=== PATIENT | female | born 1985 | race American Indian/Alaskan Native ===

== ENCOUNTER 2017-04-16 03:32 | Emergency (ER) | payer SELFPAY ==
[2017-04-16] MEDS ORDERED: PEPCID ONE (03:43)
[2017-04-16] MEDS ORDERED: BENADRYL PO ONE ×2 (03:43→03:48)
[2017-04-16] MEDS ORDERED: PEPCID PO ONE (03:49)
[2017-04-16 03:54] VITALS: BP 112/57
--- NOTE | 2017-04-16 05:10 | Emergency Department Report ---
ED Rash HPI - HPI Chief Complaint: Skin Rash Stated Complaint: RASH Time Seen by Provider: 04/16/17 05:06 Duration: 4 Days Location: Head, Neck, Chest, Back, Abdomen, Upper Extremities, Lower Extremities , Other Suspected Cause: Unknown Rash Symptoms: Yes Itching, No Facial Swelling, No Tongue/Oral Swelling, No Breathing Difficulties, No Choking Sensation, No Wheezing/Dyspnea, No Peeling, No Blistering, No Fever, No Lightheaded, No Malaise, No Myalgias Severity: moderate Other History: 32-year-old -Greek female comes in for complaint of bumps and rash since Tuesday. Patient reports that she slipped in a different bed Tuesday night and woke up with a few bumps now it has overcome her body and she reports that the Benadryl is helping just a little bit. Patient reports that she's been using calamine lotion last dose was at 03 100 on Tuesday still itching. He denies any change in deodorant, soap powder, body wash, soap. She does report she is allergic to gain and had used a gain dryer sheet which she is not short that had anything to do with her rash. ED Review of Systems ROS: Stated complaint: RASH Other details as noted in HPI Constitutional: denies: chills, fever Eyes: denies: eye pain, eye discharge, vision change ENT: denies: ear pain, throat pain Respiratory: denies: cough, shortness of breath, wheezing Cardiovascular: denies: chest pain, palpitations Endocrine: no symptoms reported Gastrointestinal: denies: abdominal pain, nausea, diarrhea Genitourinary: denies: urgency, dysuria, discharge Skin: rash Neurological: denies: headache, weakness, paresthesias Psychiatric: denies: anxiety, depression Hematological/Lymphatic: denies: easy bleeding, easy bruising ED Past Medical Hx - Past Medical History Previous Medical History?: No - Surgical History Past Surgical History?: No - Social History Smoking Status: Never Smoker Substance Use Type: None - Medications Home Medications: Home Medications Medication Instructions Recorded Confirmed Last Taken Type Nitrofurantoin [place]/M-Cryst 100 mg PO Q12HR #14 capsule 09/26/15 Unknown Rx [Macrobid CAP] Phenazopyridine [Pyridium] 200 mg PO TID 3 Days 09/26/15 Unknown Rx Cetirizine HCl [ZyrTEC] 10 mg PO QDAY #30 capsule 04/16/17 Unknown Rx Famotidine [Pepcid] 20 mg PO BID #30 tablet 04/16/17 Unknown Rx Prednisone [predniSONE 5 mg (6-Day 5 mg PO .TAPER #1 tab.ds.pk 04/16/17 Unknown Rx Pack, 21 Tabs)] Rash Exam - Exam General: Vital signs noted. No distress. Alert and acting appropriately. HEENT: No Periorbital Edema, No Conjuctival Injection, No Chemosis, No Perioral Edema, No Tongue Edema, No Uvular Edema, No Compromised Airway, No Drooling Lungs: Yes Good Air Exchange, No Wheezes, No Ronchi, No Stridor, No Cough, No Labored Respirations, No Retractions, No Use of Accessory Muscles, No Other Abnormal Lung Sounds Heart: Yes Regular, No Murmur Skin: Yes Maculopapular Rash, Yes Erythema, No Urticarial Rash, No Morbilliform rash, No Bulla(e), No Excoriations, No Weeping, No Tenderness, No Edema ED Course Vital Signs 04/16/17 03:38 Temperature 98.0 F Pulse Rate 61 Respiratory 18 Rate Blood Pressure 112/57 [Right] O2 Sat by Pulse 100 Oximetry ED Medical Decision Making - Medical Decision Making He has been evaluated by this provider fast track. She was given an order for Benadryl Pepcid and Solu-Medrol in triage. Patient reports that she feels much better but the rash is still there. Discussed the patient that we would discharge her on Zyrtec and Medrol Dosepak and Benadryl and have her follow-up with the primary care provider in 3-5 days. Patient verbalized understanding. Critical care attestation.: If time is entered above; I have spent that time in minutes in the direct care of this critically ill patient, excluding procedure time. ED Disposition Clinical Impression: Rash and nonspecific skin eruption Disposition: DISCHARGED TO HOME OR SELFCARE Is pt being admited?: No Does the pt Need Aspirin: No Condition: Stable Instructions: Acute Rash (ED) Additional Instructions: He is taking medication as prescribed. He doesn't also take Benadryl before going to bed. Follow up with the primary care provider in 3-5 days if rash persists or gets worse Prescriptions: Cetirizine HCl [ZyrTEC] 10 mg PO QDAY #30 capsule Famotidine [Pepcid] 20 mg PO BID #30 tablet Prednisone [predniSONE 5 mg (6-Day Pack, 21 Tabs)] 5 mg PO .TAPER #1 tab.ds.pk Referrals: PRIMARY CARE, [Primary Care Provider] - 3-5 Days [facility] [Outside] - 3-5 Days Forms: Work/School Release Form(ED)
== END 2017-04-16 05:20 | disposition home or self-care (01) ==
LOC: ED 03:32
DX: R21 Rash and other nonspecific skin eruption (principal)
CPT/HCPCS: 96372; 99282; J2930

== ENCOUNTER 2019-12-24 17:06 | Emergency (ER) | payer SELFPAY ==
[2019-12-24 19:44] VITALS: BP 114/78
--- NOTE | 2019-12-24 19:46 | Event Note ---
ED Screening Note ED Screening Note: sore throat that began yesterday pain with swallowing nasal congestion no cough subjective fever yesterday no sick contacts PMHx none no allergies to meds This initial assessment/diagnostic orders/clinical plan/treatment(s) is/are subject to change based on patients health status, clinical progression and re- assessment by fellow clinical providers in the ED. Further treatment and workup at subsequent clinical providers discretion. Patient/guardian urged not to elope from the ED as their condition may be serious if not clinically assessed and managed. Initial orders include:
--- NOTE | 2019-12-24 19:48 | Emergency Department Report ---
ED ENT HPI - General Chief complaint: Sore Throat Stated complaint: STREP THROAT Time Seen by Provider: 12/24/19 19:42 Source: patient Mode of arrival: Ambulatory Limitations: No Limitations - History of Present Illness Initial comments: pt is a 34 yo sore throat that began yesterday she has associated pain with swallowing, she is tolerating secretions and PO intake without difficulty (+) nasal congestion no cough (+) subjective fever yesterday no sick contacts PMHx none no allergies to meds - Related Data Previous Rx's Medication Instructions Recorded Last Taken Type Nitrofurantoin [place]/M-Cryst 100 mg PO Q12HR #14 capsule 09/26/15 Unknown Rx [Macrobid CAP] Phenazopyridine [Pyridium] 200 mg PO TID 3 Days tab 09/26/15 Unknown Rx Cetirizine HCl [ZyrTEC] 10 mg PO QDAY #30 capsule 04/16/17 Unknown Rx Famotidine [Pepcid] 20 mg PO BID #30 tablet 04/16/17 Unknown Rx Prednisone [predniSONE 5 mg (6-Day 5 mg PO .TAPER #1 tab.ds.pk 04/16/17 Unknown Rx Pack, 21 Tabs)] Amoxicillin [Trimox] 500 mg PO BID 10 Days #40 capsule 12/24/19 Unknown Rx Allergies Allergy/AdvReac Type Severity Reaction Status Date / Time No Known Allergies Allergy Verified 04/16/17 04:04 ED Dental HPI - General Chief complaint: Sore Throat Stated complaint: STREP THROAT Time Seen by Provider: 12/24/19 19:42 Source: patient Mode of arrival: Ambulatory Limitations: No Limitations - Related Data Previous Rx's Medication Instructions Recorded Last Taken Type Nitrofurantoin [place]/M-Cryst 100 mg PO Q12HR #14 capsule 09/26/15 Unknown Rx [Macrobid CAP] Phenazopyridine [Pyridium] 200 mg PO TID 3 Days tab 09/26/15 Unknown Rx Cetirizine HCl [ZyrTEC] 10 mg PO QDAY #30 capsule 04/16/17 Unknown Rx Famotidine [Pepcid] 20 mg PO BID #30 tablet 04/16/17 Unknown Rx Prednisone [predniSONE 5 mg (6-Day 5 mg PO .TAPER #1 tab.ds.pk 04/16/17 Unknown Rx Pack, 21 Tabs)] Amoxicillin [Trimox] 500 mg PO BID 10 Days #40 capsule 12/24/19 Unknown Rx Allergies Allergy/AdvReac Type Severity Reaction Status Date / Time No Known Allergies Allergy Verified 04/16/17 04:04 ED Review of Systems ROS: Stated complaint: STREP THROAT Other details as noted in HPI Comment: All other systems reviewed and negative ED Past Medical Hx - Past Medical History Previous Medical History?: No - Surgical History Past Surgical History?: No - Social History Smoking Status: Never Smoker Substance Use Type: None - Medications Home Medications: Home Medications Medication Instructions Recorded Confirmed Last Taken Type Nitrofurantoin [place]/M-Cryst 100 mg PO Q12HR #14 capsule 09/26/15 Unknown Rx [Macrobid CAP] Phenazopyridine [Pyridium] 200 mg PO TID 3 Days tab 09/26/15 Unknown Rx Cetirizine HCl [ZyrTEC] 10 mg PO QDAY #30 capsule 04/16/17 Unknown Rx Famotidine [Pepcid] 20 mg PO BID #30 tablet 04/16/17 Unknown Rx Prednisone [predniSONE 5 mg (6-Day 5 mg PO .TAPER #1 tab.ds.pk 04/16/17 Unknown Rx Pack, 21 Tabs)] Amoxicillin [Trimox] 500 mg PO BID 10 Days #40 capsule 12/24/19 Unknown Rx ED Physical Exam - General Limitations: No Limitations General appearance: alert, in no apparent distress - Head Head exam: Present: atraumatic, normocephalic - Eye Eye exam: Present: normal appearance - ENT ENT exam: Present: mucous membranes moist, TM's normal bilaterally, normal external ear exam, other (tonsillar hypertrophy with tonsillar exudates bilaterally, breath has odor similar to strep, uvula is midline, no uvular deviation, no uvular edema) - Neck Neck exam: Present: lymphadenopathy (small bilateral anterior cervical LAD) - Respiratory Respiratory exam: Present: normal lung sounds bilaterally. Absent: respiratory distress, wheezes, rales, rhonchi, stridor, chest wall tenderness, accessory muscle use, decreased breath sounds, prolonged expiratory - Cardiovascular Cardiovascular Exam: Present: regular rate, normal rhythm, normal heart sounds. Absent: systolic murmur, diastolic murmur, rubs, gallop - Neurological Exam Neurological exam: Present: alert, oriented X3 - Psychiatric Psychiatric exam: Present: normal affect, normal mood - Skin Skin exam: Present: warm, dry, intact ED Course Vital Signs 12/24/19 12/24/19 17:37 19:42 Temperature 98.4 F 98.4 F Pulse Rate 85 94 H Respiratory 20 20 Rate Blood Pressure 114/78 114/78 O2 Sat by Pulse 100 100 Oximetry ED Medical Decision Making - Medical Decision Making pt is a 34 yo sore throat that began yesterday she has associated pain with swallowing, she is tolerating secretions and PO intake without difficulty (+) nasal congestion no cough (+) subjective fever yesterday no sick contacts PMHx none no allergies to meds VSS on exam: tonsillar hypertrophy with tonsillar exudates bilaterally, breath has odor similar to strep, uvula is midline, no uvular deviation, no uvular edema, small bilateral anterior cervical LAD examination consistent with tonsillitis pt given prescription for amoxicillin advised pt please take medication as prescribed. do warm salt water gargles three times a day. may use over the counter throat spray. increase your fluid intake over the next several days. may take tylenol or ibuprofen for any pain. may use mucinex and flonase over the counter for nasal congestion. follow up with a primary care doctor in the next 2-3 days. return to the emergency room for any new or worsening symptoms. - Differential Diagnosis strep, tonsillitis, URI, viral syndrome Critical care attestation.: If time is entered above; I have spent that time in minutes in the direct care of this critically ill patient, excluding procedure time. ED Disposition Clinical Impression: Tonsillitis, Nasal congestion Disposition: [id number] TO HOME OR SELFCARE Is pt being admited?: No Does the pt Need Aspirin: No Condition: Stable Instructions: Tonsillitis (ED) Additional Instructions: please take medication as prescribed. do warm salt water gargles three times a day. may use over the counter throat spray. increase your fluid intake over the next several days. may take tylenol or ibuprofen for any pain. may use mucinex and flonase over the counter for nasal congestion. follow up with a primary care doctor in the next 2-3 days. return to the emergency room for any new or worsening symptoms. Prescriptions: Amoxicillin [Trimox] 500 mg PO BID 10 Days #40 capsule Referrals: JACOBO CYR MD [Staff Physician] - 2-3 Days [facility] [Outside] - 2-3 Days [facility] [Outside] - 2-3 Days Time of Disposition: 19:48 Print Language: JAPANESE
== END 2019-12-24 21:18 | disposition home or self-care (01) ==
LOC: ED 17:06
DX: J03.80 Acute tonsillitis due to other specified organisms (principal); Z79.899 Other long term (current) drug therapy
CPT/HCPCS: 99282